=== PATIENT | female | born 2000 | race Two or more races ===

== ENCOUNTER 2023-07-15 20:04 | Inpatient (IN) | payer SELFPAY ==
[~2023-07-15] VITALS: Ht 165.1 cm; Wt 54.7 kg
[2023-07-15] MEDS: LORazepam 2MG/ML-1ML VIAL IV ONE (20:05)
[2023-07-15] MEDS: ETOMIDATE (2MG/ML) 20ML VIAL IV ONE ×2 (20:43→20:51)
[2023-07-15] MEDS: SUCCINYLCHOLINE CHLORIDE 20 MG/ML 10ML VIAL IV ONE ×2 (20:44→20:52)
[2023-07-15 20:55] VITALS: BP 110/72; PULSE 109; RESP 16; O2SAT 100
[2023-07-15] MEDS ORDERED: MIDAZOLAM DRIP 50 mg/50mL 50 ML IV SCH (21:00)
[2023-07-15] MEDS: MIDAZOLAM DRIP 50 mg/50mL 50 ML IV ONE (21:24)
[2023-07-15] MEDS: ROCURONIUM 10MG/ML 10ML VIAL IV ONE (21:24)
[2023-07-15] MEDS: MIDAZOLAM DRIP 50 mg/50mL 50 ML IV SCH (21:30)
[2023-07-15] MEDS ORDERED: ONDANSETRON HCL 4 MG/2 ML VIAL IV PRN (21:45)
[2023-07-15] MEDS ORDERED: MORPHINE SULFATE INJ 2 MG/ml SYRG IV PRN (21:45)
[2023-07-15] MEDS ORDERED: NITROGLYCERIN 0.4 MG SL TAB SL PRN (21:45)
[2023-07-15] MEDS ORDERED: ACETAMINOPHEN 325 MG TAB PO PRN (21:45)
[2023-07-15 21:52] LABS: Urine Bacteria FEW /hpf (None Seen); Urine Blood 2+ /uL (Negative); Urine Clarity Clear (Clear); Urine Color Light-Yellow (Yellow); Urine Protein, UAD Negative (Negative); Urine Urobilinogen Normal (Negative); Urine WBC 1 /hpf (0 - 5); Urine pH 5.5 (5.0-9.0)
[2023-07-15 21:58] LABS: Amphetamine Screen, Urine Neg (NEGATIVE); Barbiturate Scree,Urine Neg (NEGATIVE); Benzodiazephine Screen, Urine Pos (NEGATIVE); Cannabinoid Screen, Urine Neg (NEGATIVE); Cocaine Screen, Urine Neg (NEGATIVE); Opiate Scree,Urine Neg (NEGATIVE); Phencyclidine Screen, Urine Neg (NEGATIVE)
[2023-07-15 22:11] LABS: Basophils # (auto) 0.1 10 ^3/uL (0-0.2); Basophils % (auto) 0.7 % (0.0-2.0); Eosinophils # (auto) 0.2 10 ^3/uL (0-0.8); Eosinophils % (auto) 1.4 % (0.0-7.0); Hemoglobin 13.3 g/dL (12.2-16.2); Lymphocytes # (auto) 8.4 10 ^3/uL (0.4-5.4); Lymphocytes % (auto) 50.6 % (10.0-50.0); Mean Corpuscular Hemoglobin 27.4 pg (28.0-32.0); Mean Corpuscular Hgb Conc. 32.5 g/dL (32.0-36.0); Mean Corpuscular Volume 84.3 fL (80.0-100.0); Monocytes # (auto) 1.4 10 ^3/uL (0-1.3); Monocytes % (auto) 8.7 % (0.0-12.0); Neutrophils # (auto) 6.4 10 ^3/uL (1.6-8.6); Neutrophils % (auto) 38.6 % (37.0-80.0); Nucleated Red Blood Cells % 0.2 %; Red Blood Cells 4.87 10^6/uL (4.0-5.20); Red Cell Distribution Width 13.8 % (11.8-14.3); White Blood Cell 16.5 10^3/uL (4.4-10.8)
[2023-07-15 22:12] LABS: Base Excess -2.6 mmol/L (-2.0-2.0)
[2023-07-15] MEDS: levETIRAcetam 1000 mg/100ml 100 ML IV ONE (22:13)
[2023-07-15] MEDS: PROPOFOL 100 ML IV SCH (22:15)
[2023-07-15 22:29] LABS: Alanine Aminotransferase 18 U/L (7-40); Albumin 4.5 g/dL (3.2-4.8); Alkaline Phosphatase 96 U/L (46-116); Anion Gap 7 (5-15); Aspartate Aminotransferase 33 U/L (13-40); BUN/Creatinine Ratio 11.7 (10.0-20.0); Bilirubin, Total 0.5 mg/dL (0.2-1.0); Blood Urea Nitrogen 9 mg/dL (9-23); Calcium 9.4 mg/dL (8.5-10.1); Carbon Dioxide 26 mmol/L (20-30); Chloride 108 mmol/L (98-107); Glucose 127 mg/dL (74-106); Potassium 3.2 mmol/L (3.5-5.1); Sodium 141 mmol/L (136-145); Total Protein 7.5 g/dL (5.7-8.2)
[2023-07-15] MEDS: fentaNYL Drip 2500mCg/250mlNS 250 ML IV ONE (23:42)
[2023-07-16] VITALS (99 sets, daily range): BP systolic 79–122; BP diastolic 46–89; PULSE 52–101; RESP 13–34; TEMP 96.6–100.2; O2SAT 98–100
[2023-07-16] MEDS: KETAMINE 50mg/ML 10ml Vial 10 ML ONE (00:02)
[2023-07-16] MEDS: SODIUM CHLORIDE 0.9% 1,000 ML IV ONE (00:16)
[2023-07-16] MEDS: ONDANSETRON HCL 4 MG/2 ML VIAL IV ONE (00:16)
[2023-07-16] MEDS: KETAMINE 50mg/ML 10ml Vial (500mg/10ml) IM ONE (00:16)
[2023-07-16] MEDS: PROPOFOL 100 ML IV ONE (00:17)
[2023-07-16] MEDS: SODIUM CHLORIDE 0.9% 1,000 ML IV SCH (01:33)
[2023-07-16] MEDS: PHENYLEPHRINE IV 250 ML IV SCH (02:43)
[2023-07-16] MEDS: fentaNYL Drip 2500mCg/250mlNS 250 ML IV SCH (02:45)
[2023-07-16 04:05] LABS: Basophils # (auto) 0.1 10 ^3/uL (0-0.2); Basophils % (auto) 0.5 % (0.0-2.0); Eosinophils # (auto) 0.1 10 ^3/uL (0-0.8); Eosinophils % (auto) 0.5 % (0.0-7.0); Hematocrit 34.7 % (36.0-46.0); Hemoglobin 11.5 g/dL (12.2-16.2); Lymphocytes # (auto) 2.9 10 ^3/uL (0.4-5.4); Lymphocytes % (auto) 18.8 % (10.0-50.0); Mean Corpuscular Hemoglobin 27.5 pg (28.0-32.0); Mean Corpuscular Volume 83.3 fL (80.0-100.0); Monocytes # (auto) 1.1 10 ^3/uL (0-1.3); Monocytes % (auto) 7.3 % (0.0-12.0); Neutrophils # (auto) 11.2 10 ^3/uL (1.6-8.6); Neutrophils % (auto) 72.9 % (37.0-80.0); Red Blood Cells 4.16 10^6/uL (4.0-5.20); Red Cell Distribution Width 14.1 % (11.8-14.3); White Blood Cell 15.4 10^3/uL (4.4-10.8)
[2023-07-16 04:24] LABS: Alanine Aminotransferase 15 U/L (7-40); Albumin 3.7 g/dL (3.2-4.8); Alkaline Phosphatase 79 U/L (46-116); Anion Gap 8 (5-15); Aspartate Aminotransferase 29 U/L (13-40); BUN/Creatinine Ratio 11.1 (10.0-20.0); Bilirubin, Total 0.2 mg/dL (0.2-1.0); Blood Urea Nitrogen 8 mg/dL (9-23); Calcium 8.3 mg/dL (8.7-10.4); Carbon Dioxide 22 mmol/L (20-30); Chloride 113 mmol/L (98-107); Glucose 98 mg/dL (74-106); Potassium 4.1 mmol/L (3.5-5.1); Sodium 143 mmol/L (136-145); Total Protein 6.4 g/dL (5.7-8.2)
[2023-07-16] MEDS: CEFEPIME 1GM/ 50ML 50 ML IV ONE (08:45)
[2023-07-16] MEDS ORDERED: VANCOMYCIN PER PHARMACY 0 MG IV SCH ×2 (08:45→16:45)
[2023-07-16] MEDS ORDERED: VANCOMYCIN 1GM/200ML 200 ML IV ONE (09:30)
[2023-07-16 10:14] LABS: INR 1.06 (0.9-1.15); Partial Thromboplastin Time 25.8 SEC (24.5-34.5); Prothrombin Time 11.2 sec (9.3-11.8)
[2023-07-16] MEDS: levETIRAcetam 1000 mg/100ml 100 ML IV SCH (10:17)
[2023-07-16] MEDS: NOREPINEPHRINE 8 MG/250ML KIT 250 ML IV SCH (10:18)
[2023-07-16 10:19] LABS: Erythrocyte Sedimentation Rate 10 mm/hr (0-20)
[2023-07-16] MEDS: PANTOPRAZOLE 40 MG/10 ML VIAL INJ IV SCH (10:21)
[2023-07-16] MEDS: ENOXAPARIN SOD 40 MG/0.4 ML SYRINGE SC SCH (10:22)
[2023-07-16 10:25] LABS: Base Excess -4.5 mmol/L (-2.0-2.0)
[2023-07-16 10:28] LABS: CRP High Sensitivity 0.19 mg/dL (<1.0)
[2023-07-16 10:29] LABS: Phosphorus 4.1 mg/dL (2.4-5.1)
[2023-07-16] MEDS: VANCOMYCIN 1GM/200ML 200 ML IV SCH (10:38)
[2023-07-16] MEDS: CEFEPIME 1GM/ 50ML 50 ML IV SCH (14:40)
[2023-07-16] MEDS: MIDAZOLAM DRIP 50 mg/50mL 50 ML IV SCH (17:00)
[2023-07-16] MEDS: DexAMETHasone INJECTION 10 MG in D5W 5% 50 ML IV ONE (20:00)
[2023-07-16] MEDS: Jevity 1.2 Cal/Fiber 1 Liter GT SCH (20:44)
[2023-07-16] MEDS: VANCOMYCIN 1,500 MG in D5W 5% 250 ML IV SCH (20:44)
[2023-07-16] MEDS: levETIRAcetam 500 mg/100ml 100 ML IV SCH (21:46)
[2023-07-16] MEDS: LORazepam 2MG/ML-1ML VIAL IV ONE (22:00)
[2023-07-16] MEDS ORDERED: LORazepam 2MG/ML-1ML VIAL IV PRN (22:00)
[2023-07-16] MEDS: CEFEPIME 2GM/50ML NS 50 ML IV SCH (22:28)
[2023-07-17] VITALS (106 sets, daily range): BP systolic 81–118; BP diastolic 45–85; PULSE 43–104; RESP 13–29; TEMP 96.3–101.1; O2SAT 91–100
[2023-07-17] MEDS: DexAMETHasone INJECTION 10 MG in D5W 5% 50 ML IV SCH
[2023-07-17 04:11] LABS: Nucleated Red Blood Cells % 0.1 %
[2023-07-17 04:12] LABS: Basophils # (auto) 0 10 ^3/uL (0-0.2); Basophils % (auto) 0.3 % (0.0-2.0); Eosinophils # (auto) 0.2 10 ^3/uL (0-0.8); Eosinophils % (auto) 1.5 % (0.0-7.0); Hemoglobin 11.5 g/dL (12.2-16.2); Lymphocytes # (auto) 3.2 10 ^3/uL (0.4-5.4); Lymphocytes % (auto) 23.3 % (10.0-50.0); Mean Corpuscular Hemoglobin 27.2 pg (28.0-32.0); Mean Corpuscular Hgb Conc. 32.8 g/dL (32.0-36.0); Mean Corpuscular Volume 82.9 fL (80.0-100.0); Monocytes # (auto) 1.1 10 ^3/uL (0-1.3); Monocytes % (auto) 8.2 % (0.0-12.0); Neutrophils # (auto) 9.2 10 ^3/uL (1.6-8.6); Neutrophils % (auto) 66.7 % (37.0-80.0); Red Blood Cells 4.22 10^6/uL (4.0-5.20); Red Cell Distribution Width 14.1 % (11.8-14.3); White Blood Cell 13.7 10^3/uL (4.4-10.8)
[2023-07-17 04:32] LABS: Alanine Aminotransferase 13 U/L (7-40); Albumin 3.5 g/dL (3.2-4.8); Alkaline Phosphatase 75 U/L (46-116); Anion Gap 10 (5-15); Aspartate Aminotransferase 17 U/L (13-40); Calcium 8.7 mg/dL (8.7-10.4); Carbon Dioxide 21 mmol/L (20-30); Chloride 113 mmol/L (98-107); Glucose 137 mg/dL (74-106); Magnesium 1.9 mg/dL (1.6-2.6); Potassium 3.4 mmol/L (3.5-5.1); Sodium 144 mmol/L (136-145)
[2023-07-17 04:33] LABS: Bilirubin, Total 0.3 mg/dL (0.2-1.0); Phosphorus 3.4 mg/dL (2.4-5.1); Total Protein 6.2 g/dL (5.7-8.2)
[2023-07-17 04:37] LABS: BUN/Creatinine Ratio 8.3 (10.0-20.0); Blood Urea Nitrogen < 5 mg/dL (9-23)
[2023-07-17 07:40] LABS: Base Excess -1.8 mmol/L (-2.0-2.0)
[2023-07-17 08:06] LABS: RPR Non Reactive (Non Reactive)
[2023-07-17] MEDS: ACETAMINOPHEN 650 mg PER 20.3 mL UD GT PRN (11:18)
[2023-07-17] MEDS: levETIRAcetam 1000 mg/100ml 100 ML IV ONE (11:18)
[2023-07-17] MEDS: POTASSIUM CHL 20MEQ/100ML 100 ML IV ONE (11:38)
[2023-07-17 12:07] LABS: Anti-Centromere B Antibody <0.2 AI (0.0-0.9); Anti-Jo-1 Antibody <0.2 AI (0.0-0.9); Anti-Nuclear Antibody Direct Negative (Negative); Anti-dsDNA Antibody 1 IU/mL (0-9); Antichromatin Antibody <0.2 AI (0.0-0.9); Antiscleroderma-70 Antibody <0.2 AI (0.0-0.9); RNP Antibody <0.2 AI (0.0-0.9); Sjogren's Anti-SS-A Antibody <0.2 AI (0.0-0.9); Sjogren's Anti-SS-B Antibody <0.2 AI (0.0-0.9); Smith Antibody <0.2 AI (0.0-0.9)
[2023-07-17] MEDS: levETIRAcetam 500 mg/100ml 100 ML IV SCH (16:30)
[2023-07-18] VITALS (106 sets, daily range): BP systolic 86–128; BP diastolic 46–83; PULSE 41–89; RESP 9–24; TEMP 96.2–98.4; O2SAT 77–99
[2023-07-18 04:00] LABS: White Blood Cell 28.8 10^3/uL (4.4-10.8)
[2023-07-18 04:06] LABS: Hematocrit 36.7 % (36.0-46.0); Mean Corpuscular Hemoglobin 27.6 pg (28.0-32.0); Mean Corpuscular Hgb Conc. 32.7 g/dL (32.0-36.0); Mean Corpuscular Volume 84.3 fL (80.0-100.0); Red Blood Cells 4.35 10^6/uL (4.0-5.20); Red Cell Distribution Width 13.9 % (11.8-14.3)
[2023-07-18 04:07] LABS: Basophils % (manual) 0 (0.0-2.0); Blast Cells 0; Eosinophils % (manual) 0 (0-7); Metamyelocytes % 0; Myelocytes % 0; Promyelocytes % 0; Reactive Lymphocytes 0
[2023-07-18 04:14] LABS: Anion Gap 7 (5-15); Carbon Dioxide 23 mmol/L (20-30); Chloride 113 mmol/L (98-107); Sodium 143 mmol/L (136-145)
[2023-07-18 04:15] LABS: Calcium 9.4 mg/dL (8.7-10.4)
[2023-07-18 04:20] LABS: Glucose 156 mg/dL (74-106)
[2023-07-18 04:41] LABS: BUN/Creatinine Ratio 7.1 (10.0-20.0); Blood Urea Nitrogen < 5 mg/dL (9-23)
[2023-07-18 07:34] LABS: Base Excess -0.9 mmol/L (-2.0-2.0)
[2023-07-18 09:57] LABS: Platelet Estimate Adequate
[2023-07-18 09:59] LABS: Band Neutrophils % (manual) 15; Lymphocytes % (manual) 4 (10.0-50.0); Monocytes % (manual) 1 (0-12)
[2023-07-18] MEDS: VANCOMYCIN 1GM/200ML 200 ML IV ONE (10:41)
[2023-07-18 11:03] LABS: Urine Bacteria None Seen /hpf (None Seen)
[2023-07-18 11:33] LABS: Urine Blood Negative /uL (Negative); Urine Clarity Clear (Clear); Urine Color Light-Yellow (Yellow); Urine Mucus FEW (None Seen); Urine Protein, UAD TRACE (Negative); Urine Specific Gravity 1.021 (1.001-1.035); Urine Urobilinogen Normal (Negative); Urine WBC 1 /hpf (0 - 5); Urine pH 5.5 (5.0-9.0)
[2023-07-18] MEDS: DOPamine 1600MCG/ML D5W 250 ML IV ONE (12:42)
[2023-07-18] MEDS: LORazepam 2MG/ML-1ML VIAL ONE (13:02)
[2023-07-18 15:30] LABS: Protein, CSF 34.6 mg/dL (15-45)
[2023-07-18] MEDS: ATROPINE SULFATE 1 MG/1 ML VIAL ONE (16:26)
[2023-07-18] MEDS: DOPamine 1600MCG/ML D5W 250 ML IV SCH ×2 (16:46→20:15)
[2023-07-18 17:11] LABS: CSF White Blood Cells 3 CUMM (0-5); Description,CSF COLORLESS
[2023-07-18] MEDS: LORazepam 2MG/ML-1ML VIAL IV ONE (17:33)
[2023-07-18] MEDS: VANCOMYCIN 1GM/200ML 200 ML IV SCH (17:57)
[2023-07-18 19:06] LABS: Antimyeloperoxidase (MPO) Ab <0.2 units (0.0-0.9); Antiproteinase 3 (PR-3) Ab <0.2 units (0.0-0.9)
[2023-07-19] VITALS (94 sets, daily range): BP systolic 94–142; BP diastolic 17–86; PULSE 37–74; RESP 15–24; TEMP 97.5–99.1; O2SAT 92–99
[2023-07-19 05:11] LABS: Basophils # (auto) 0 10 ^3/uL (0-0.2); Eosinophils # (auto) 0 10 ^3/uL (0-0.8); Hematocrit 35.5 % (36.0-46.0); Hemoglobin 11.5 g/dL (12.2-16.2); Lymphocytes # (auto) 1.1 10 ^3/uL (0.4-5.4); Mean Corpuscular Hemoglobin 27.1 pg (28.0-32.0); Mean Corpuscular Hgb Conc. 32.5 g/dL (32.0-36.0); Mean Corpuscular Volume 83.5 fL (80.0-100.0); Monocytes # (auto) 1.2 10 ^3/uL (0-1.3); Monocytes % (auto) 4.3 % (0.0-12.0); Neutrophils # (auto) 25.2 10 ^3/uL (1.6-8.6); Neutrophils % (auto) 91.7 % (37.0-80.0); Red Blood Cells 4.25 10^6/uL (4.0-5.20); White Blood Cell 27.4 10^3/uL (4.4-10.8)
[2023-07-19 06:50] LABS: BUN/Creatinine Ratio 11.9 (10.0-20.0); Blood Urea Nitrogen 8 mg/dL (9-23); Chloride 113 mmol/L (98-107); Glucose 132 mg/dL (74-106)
[2023-07-19 06:53] LABS: Anion Gap 13 (5-15); Calcium 9.2 mg/dL (8.7-10.4); Carbon Dioxide 25 mmol/L (20-30)
[2023-07-19 06:55] LABS: Sodium 151 mmol/L (136-145)
[2023-07-19 07:16] LABS: Base Excess 0.7 mmol/L (-2.0-2.0)
[2023-07-19 07:36] LABS: Rapid Influenza A Negative (Negative)
[2023-07-19 07:38] LABS: Rapid Influenza B Positive (Negative)
[2023-07-19 07:39] LABS: COVID19 ANTIGEN SOFIA FIA NEGATIVE (NEGATIVE)
[2023-07-19] MEDS: OSELTAMIVIR 75MG/5ML ORAL SUSP GT SCH (11:26)
[2023-07-19] MEDS: FREE WATER GT SCH (11:29)
[2023-07-19 13:17] LABS: INR 1.18 (0.9-1.15); Partial Thromboplastin Time 27.5 SEC (24.5-34.5); Prothrombin Time 12.4 sec (9.3-11.8)
[2023-07-19] MEDS: LIDOCAINE 1% (LOCAL ANESTH.) PF 5ml SDV ID ONE (14:00)
[2023-07-19 14:06] LABS: Cytoplasmic (C-ANCA) <1:20 titer (Neg:<1:20); Perinuclear (P-ANCA) <1:20 titer (Neg:<1:20)
[2023-07-19] MEDS ORDERED: ATROPINE SULF 1 MG/10ml SYR IV PRN (15:15)
[2023-07-19] MEDS: VANCOMYCIN 1GM/200ML 200 ML IV SCH (17:41)
[2023-07-19] MEDS: cefTRIAXone 2GM/50ML D5W 50 ML IV SCH (21:25)
[2023-07-19] MEDS: SODIUM CHLOR 0.9% PF (SALINE LOCK) 10ML VIAL/SYR IV SCH (21:30)
[2023-07-19] MEDS: LORazepam 2MG/ML-1ML VIAL IV PRN (22:14)
[2023-07-19] MEDS: LORazepam 2MG/ML-1ML VIAL IV ONE (22:17)
[2023-07-19] MEDS ORDERED: levETIRAcetam 500 mg/100ml 100 ML IV SCH (23:00)
[2023-07-19 23:06] LABS: Chlamydia Trachomatis, NAA Positive (Negative); Neisseria gonorrhoeae, NAA Negative (Negative)
[2023-07-20] VITALS (91 sets, daily range): BP systolic 88–137; BP diastolic 41–86; PULSE 47–104; RESP 15–29; TEMP 96.4–100; O2SAT 92–100
[2023-07-20 04:17] LABS: Basophils # (auto) 0.1 10 ^3/uL (0-0.2); Basophils % (auto) 0.4 % (0.0-2.0); Eosinophils # (auto) 0 10 ^3/uL (0-0.8); Eosinophils % (auto) 0.1 % (0.0-7.0); Hematocrit 33.5 % (36.0-46.0); Hemoglobin 11.2 g/dL (12.2-16.2); Lymphocytes # (auto) 1.8 10 ^3/uL (0.4-5.4); Lymphocytes % (auto) 9.8 % (10.0-50.0); Mean Corpuscular Hemoglobin 27.8 pg (28.0-32.0); Mean Corpuscular Hgb Conc. 33.5 g/dL (32.0-36.0); Mean Corpuscular Volume 83.1 fL (80.0-100.0); Monocytes % (auto) 5.5 % (0.0-12.0); Neutrophils # (auto) 15.7 10 ^3/uL (1.6-8.6); Neutrophils % (auto) 84.2 % (37.0-80.0); Nucleated Red Blood Cells % 0.1 %; Red Blood Cells 4.02 10^6/uL (4.0-5.20); Red Cell Distribution Width 13.9 % (11.8-14.3); White Blood Cell 18.6 10^3/uL (4.4-10.8)
[2023-07-20 04:40] LABS: Alanine Aminotransferase 10 U/L (7-40); Albumin 3.6 g/dL (3.2-4.8); Alkaline Phosphatase 71 U/L (46-116); Anion Gap 11 (5-15); Aspartate Aminotransferase 14 U/L (13-40); Bilirubin, Total 0.2 mg/dL (0.2-1.0); Blood Urea Nitrogen 8 mg/dL (9-23); Calcium 8.4 mg/dL (8.7-10.4); Carbon Dioxide 24 mmol/L (20-30); Chloride 108 mmol/L (98-107); Glucose 184 mg/dL (74-106); Magnesium 1.8 mg/dL (1.6-2.6); Potassium 3.5 mmol/L (3.5-5.1); Sodium 143 mmol/L (136-145); Total Protein 6.3 g/dL (5.7-8.2)
[2023-07-20] MEDS: LORazepam 2MG/ML-1ML VIAL IV PRN (05:25)
[2023-07-20] MEDS: DOPamine 1600MCG/ML D5W 250 ML IV SCH (08:45)
[2023-07-20 08:57] LABS: Base Excess -0.2 mmol/L (-2.0-2.0)
[2023-07-20] MEDS: levETIRAcetam 1500 mg/100ml 100 ML IV SCH (09:01)
[2023-07-20] MEDS: PHENYTOIN IV DILANTIN 1,000 MG in SODIUM CHL 0.9% 250 ML IV ONE (19:26)
[2023-07-21] VITALS (105 sets, daily range): BP systolic 87–121; BP diastolic 42–77; PULSE 55–142; RESP 12–33; TEMP 97.2–103.6; O2SAT 93–100
[2023-07-21 03:45] LABS: Basophils # (auto) 0 10 ^3/uL (0-0.2); Basophils % (auto) 0.3 % (0.0-2.0); Eosinophils # (auto) 0.2 10 ^3/uL (0-0.8); Eosinophils % (auto) 1.4 % (0.0-7.0); Hematocrit 30.9 % (36.0-46.0); Hemoglobin 10.4 g/dL (12.2-16.2); Lymphocytes # (auto) 2.1 10 ^3/uL (0.4-5.4); Mean Corpuscular Hemoglobin 28.1 pg (28.0-32.0); Mean Corpuscular Hgb Conc. 33.7 g/dL (32.0-36.0); Mean Corpuscular Volume 83.6 fL (80.0-100.0); Monocytes # (auto) 0.5 10 ^3/uL (0-1.3); Monocytes % (auto) 4.2 % (0.0-12.0); Neutrophils # (auto) 9.5 10 ^3/uL (1.6-8.6); Neutrophils % (auto) 77.1 % (37.0-80.0); Red Cell Distribution Width 13.8 % (11.8-14.3); White Blood Cell 12.4 10^3/uL (4.4-10.8)
[2023-07-21 03:55] LABS: Potassium 3.3 mmol/L (3.5-5.1)
[2023-07-21 04:01] LABS: Albumin 3.3 g/dL (3.2-4.8)
[2023-07-21 04:02] LABS: BUN/Creatinine Ratio 9.4 (10.0-20.0)
[2023-07-21] MEDS: PHENYTOIN SODIUM 50 MG/ML 2ML VIAL IV SCH (05:58)
[2023-07-21] MEDS: VANCOMYCIN 1GM/200ML 200 ML IV SCH (17:52)
[2023-07-21] MEDS ORDERED: DOBUTamine 1000MCG/ML 250 ML IV SCH (23:15)
[2023-07-21] MEDS ORDERED: EPINEPHrine HCL 250 ML IV SCH (23:15)
[2023-07-22] VITALS (106 sets, daily range): BP systolic 92–128; BP diastolic 50–93; PULSE 54–111; RESP 15–28; TEMP 98–99.7; O2SAT 95–100
[2023-07-22 04:15] LABS: Basophils # (auto) 0.1 10 ^3/uL (0-0.2); Basophils % (auto) 0.4 % (0.0-2.0); Eosinophils # (auto) 0.4 10 ^3/uL (0-0.8); Eosinophils % (auto) 2.6 % (0.0-7.0); Hematocrit 30.8 % (36.0-46.0); Hemoglobin 10.2 g/dL (12.2-16.2); Lymphocytes # (auto) 2.6 10 ^3/uL (0.4-5.4); Lymphocytes % (auto) 16.3 % (10.0-50.0); Mean Corpuscular Hemoglobin 27.5 pg (28.0-32.0); Mean Corpuscular Hgb Conc. 32.9 g/dL (32.0-36.0); Mean Corpuscular Volume 83.5 fL (80.0-100.0); Monocytes # (auto) 0.9 10 ^3/uL (0-1.3); Monocytes % (auto) 5.8 % (0.0-12.0); Neutrophils # (auto) 12.1 10 ^3/uL (1.6-8.6); Neutrophils % (auto) 74.9 % (37.0-80.0); Red Blood Cells 3.69 10^6/uL (4.0-5.20); Red Cell Distribution Width 14.1 % (11.8-14.3); White Blood Cell 16.1 10^3/uL (4.4-10.8)
[2023-07-22 04:51] LABS: Alanine Aminotransferase 23 U/L (7-40); Albumin 3.2 g/dL (3.2-4.8); Alkaline Phosphatase 85 U/L (46-116); Anion Gap 10 (5-15); Calcium 8.5 mg/dL (8.5-10.1); Carbon Dioxide 22 mmol/L (20-30); Chloride 112 mmol/L (98-107); Glucose 81 mg/dL (74-106); Potassium 2.9 mmol/L (3.5-5.1); Sodium 144 mmol/L (136-145)
[2023-07-22 04:52] LABS: BUN/Creatinine Ratio 12.8 (10.0-20.0); Bilirubin, Total < 0.2 mg/dL (0.2-1.0); Blood Urea Nitrogen < 5 mg/dL (9-23); Total Protein 5.7 g/dL (5.7-8.2)
[2023-07-22 04:55] LABS: Aspartate Aminotransferase 78 U/L (13-40)
[2023-07-22] MEDS: POTASSIUM CHL 20MEQ/100ML 100 ML IV ONE (05:57)
[2023-07-22 07:49] LABS: Base Excess -3.7 mmol/L (-2.0-2.0)
[2023-07-22] MEDS ORDERED: DOXYCYCLINE 100MG/250ML 250 ML IV SCH (08:30)
[2023-07-22] MEDS: POTASSIUM CHL 20MEQ/100ML 100 ML IV SCH (08:49)
[2023-07-22] MEDS: DOXYCYCLINE 100MG/250ML 250 ML IV ONE (10:12)
[2023-07-22] MEDS ORDERED: VANCOMYCIN 1GM/200ML 200 ML IV SCH (14:00)
[2023-07-22] MEDS: DOXYCYCLINE 100MG/250ML 250 ML IV SCH (21:57)
[2023-07-23] VITALS (102 sets, daily range): BP systolic 96–142; BP diastolic 53–95; PULSE 61–139; RESP 10–48; TEMP 98.2–102.2; O2SAT 66–100
[2023-07-23 04:22] LABS: Basophils # (auto) 0 10 ^3/uL (0-0.2); Basophils % (auto) 0.4 % (0.0-2.0); Eosinophils # (auto) 0.5 10 ^3/uL (0-0.8); Eosinophils % (auto) 4.9 % (0.0-7.0); Hematocrit 34.7 % (36.0-46.0); Hemoglobin 11.4 g/dL (12.2-16.2); Lymphocytes # (auto) 2.8 10 ^3/uL (0.4-5.4); Lymphocytes % (auto) 25.3 % (10.0-50.0); Mean Corpuscular Hemoglobin 27.2 pg (28.0-32.0); Mean Corpuscular Hgb Conc. 32.8 g/dL (32.0-36.0); Monocytes # (auto) 1.5 10 ^3/uL (0-1.3); Monocytes % (auto) 14.1 % (0.0-12.0); Neutrophils % (auto) 55.3 % (37.0-80.0); Nucleated Red Blood Cells % 0.1 %; Red Blood Cells 4.18 10^6/uL (4.0-5.20); Red Cell Distribution Width 14.2 % (11.8-14.3); White Blood Cell 10.9 10^3/uL (4.4-10.8)
[2023-07-23 04:38] LABS: Alkaline Phosphatase 106 U/L (46-116)
[2023-07-23 04:39] LABS: Alanine Aminotransferase 28 U/L (7-40); Albumin 3.5 g/dL (3.2-4.8); Anion Gap 11 (5-15); Aspartate Aminotransferase 64 U/L (13-40); Bilirubin, Total < 0.2 mg/dL (0.2-1.0); Carbon Dioxide 26 mmol/L (20-30); Chloride 108 mmol/L (98-107); Glucose 104 mg/dL (74-106); Magnesium 1.7 mg/dL (1.6-2.6); Potassium 3.2 mmol/L (3.5-5.1); Sodium 145 mmol/L (136-145); Total Protein 6.4 g/dL (5.7-8.2)
[2023-07-23 04:49] LABS: BUN/Creatinine Ratio 11.1 (10.0-20.0); Blood Urea Nitrogen < 5 mg/dL (9-23)
[2023-07-23] MEDS: PROPOFOL 100 ML IV SCH (06:34)
[2023-07-23 07:53] LABS: Base Excess -0.5 mmol/L (-2.0-2.0)
[2023-07-23] MEDS: POTASSIUM CHL 20MEQ/100ML 100 ML IV ONE (09:46)
[2023-07-23 13:53] LABS: Base Excess -0.1 mmol/L (-2.0-2.0)
[2023-07-23] MEDS: POTASSIUM CHL 20MEQ/100ML 100 ML IV SCH (19:29)
[2023-07-23] MEDS ORDERED: ONDANSETRON HCL 4 MG/2 ML VIAL IV PRN (20:45)
[2023-07-23] MEDS: ACETAMINOPHEN 650 MG RECT SUPP PR PRN (22:16)
[2023-07-23] MEDS ORDERED: LORazepam 2MG/ML-1ML VIAL IV PRN (23:15)
[2023-07-24] VITALS (47 sets, daily range): BP systolic 78–116; BP diastolic 54–86; PULSE 94–130; RESP 12–45; TEMP 98.5–101.7; O2SAT 89–100
[2023-07-24 04:46] LABS: Basophils # (auto) 0 10 ^3/uL (0-0.2); Basophils % (auto) 0.3 % (0.0-2.0); Eosinophils # (auto) 0 10 ^3/uL (0-0.8); Eosinophils % (auto) 0.2 % (0.0-7.0); Hematocrit 33.4 % (36.0-46.0); Hemoglobin 11.6 g/dL (12.2-16.2); Lymphocytes # (auto) 1.2 10 ^3/uL (0.4-5.4); Lymphocytes % (auto) 9.8 % (10.0-50.0); Mean Corpuscular Hemoglobin 28.1 pg (28.0-32.0); Mean Corpuscular Hgb Conc. 34.7 g/dL (32.0-36.0); Mean Corpuscular Volume 80.9 fL (80.0-100.0); Monocytes # (auto) 0.6 10 ^3/uL (0-1.3); Monocytes % (auto) 4.7 % (0.0-12.0); Neutrophils # (auto) 10.2 10 ^3/uL (1.6-8.6); Red Blood Cells 4.13 10^6/uL (4.0-5.20); Red Cell Distribution Width 13.9 % (11.8-14.3)
[2023-07-24 05:02] LABS: Alanine Aminotransferase 38 U/L (7-40); Albumin 4.2 g/dL (3.2-4.8); Alkaline Phosphatase 132 U/L (46-116); Anion Gap 14 (5-15); Aspartate Aminotransferase 72 U/L (13-40); Bilirubin, Total 0.2 mg/dL (0.2-1.0); Calcium 9.7 mg/dL (8.7-10.4); Carbon Dioxide 23 mmol/L (20-30); Chloride 104 mmol/L (98-107); Glucose 100 mg/dL (74-106); Magnesium 1.9 mg/dL (1.6-2.6); Potassium 3.8 mmol/L (3.5-5.1); Sodium 141 mmol/L (136-145); Total Protein 7.5 g/dL (5.7-8.2)
[2023-07-24 05:12] LABS: BUN/Creatinine Ratio 11.1 (10.0-20.0); Blood Urea Nitrogen < 5 mg/dL (9-23)
[2023-07-24] MEDS: AMPICILLIN & SULBACTAM SODIUM 3 GM in SODIUM CHL 0.9% 100 ML IV SCH (12:15)
[2023-07-24] MEDS: levETIRAcetam 500 MG TAB PO SCH (21:31)
[2023-07-24] MEDS: PHENYTOIN SODIUM 100 MG CAP PO SCH (22:19)
[2023-07-25] VITALS (12 sets, daily range): BP systolic 99–106; BP diastolic 65–75; PULSE 71–116; RESP 15–21; TEMP 97.9–99.2; O2SAT 96–98
[2023-07-25 06:05] LABS: Basophils # (auto) 0 10 ^3/uL (0-0.2); Basophils % (auto) 0.5 % (0.0-2.0); Eosinophils # (auto) 0.1 10 ^3/uL (0-0.8); Eosinophils % (auto) 0.6 % (0.0-7.0); Hematocrit 35.5 % (36.0-46.0); Lymphocytes # (auto) 2.1 10 ^3/uL (0.4-5.4); Lymphocytes % (auto) 21.9 % (10.0-50.0); Mean Corpuscular Hemoglobin 27.4 pg (28.0-32.0); Mean Corpuscular Hgb Conc. 33.8 g/dL (32.0-36.0); Mean Corpuscular Volume 81.1 fL (80.0-100.0); Monocytes # (auto) 0.8 10 ^3/uL (0-1.3); Monocytes % (auto) 8.7 % (0.0-12.0); Neutrophils # (auto) 6.6 10 ^3/uL (1.6-8.6); Neutrophils % (auto) 68.3 % (37.0-80.0); Red Blood Cells 4.38 10^6/uL (4.0-5.20); Red Cell Distribution Width 14.2 % (11.8-14.3); White Blood Cell 9.7 10^3/uL (4.4-10.8)
[2023-07-25 06:24] LABS: Alanine Aminotransferase 34 U/L (7-40); Albumin 4.2 g/dL (3.2-4.8); Alkaline Phosphatase 111 U/L (46-116); Anion Gap 15 (5-15); Aspartate Aminotransferase 43 U/L (13-40); Bilirubin, Total 0.3 mg/dL (0.2-1.0); Blood Urea Nitrogen 9 mg/dL (9-23); Calcium 9.7 mg/dL (8.7-10.4); Carbon Dioxide 21 mmol/L (20-30); Chloride 107 mmol/L (98-107); Glucose 93 mg/dL (74-106); Magnesium 2.2 mg/dL (1.6-2.6); Potassium 3.7 mmol/L (3.5-5.1); Sodium 143 mmol/L (136-145)
[2023-07-25 06:25] LABS: Total Protein 7.5 g/dL (5.7-8.2)
[2023-07-25] MEDS ORDERED: PANTOPRAZOLE 40 MG TAB PO ONE (12:45)
[2023-07-26] VITALS (8 sets, daily range): BP systolic 102–106; BP diastolic 65–74; PULSE 63–77; RESP 15–17; TEMP 97.5–99.2; O2SAT 93–98
[2023-07-26] MEDS: PANTOPRAZOLE 40 MG TAB PO SCH (05:40)
[2023-07-26 06:30] LABS: Basophils # (auto) 0.1 10 ^3/uL (0-0.2); Basophils % (auto) 0.9 % (0.0-2.0); Eosinophils # (auto) 0.1 10 ^3/uL (0-0.8); Eosinophils % (auto) 0.7 % (0.0-7.0); Hematocrit 34.3 % (36.0-46.0); Hemoglobin 11.4 g/dL (12.2-16.2); Lymphocytes # (auto) 2.4 10 ^3/uL (0.4-5.4); Lymphocytes % (auto) 26.1 % (10.0-50.0); Mean Corpuscular Hemoglobin 27.4 pg (28.0-32.0); Mean Corpuscular Hgb Conc. 33.3 g/dL (32.0-36.0); Mean Corpuscular Volume 82.3 fL (80.0-100.0); Monocytes % (auto) 10.5 % (0.0-12.0); Neutrophils # (auto) 5.8 10 ^3/uL (1.6-8.6); Neutrophils % (auto) 61.8 % (37.0-80.0); Nucleated Red Blood Cells % 0.1 %; Red Blood Cells 4.17 10^6/uL (4.0-5.20); Red Cell Distribution Width 13.9 % (11.8-14.3); White Blood Cell 9.4 10^3/uL (4.4-10.8)
[2023-07-26 06:49] LABS: Alanine Aminotransferase 33 U/L (7-40); Albumin 4.2 g/dL (3.2-4.8); Alkaline Phosphatase 100 U/L (46-116); Anion Gap 10 (5-15); Aspartate Aminotransferase 27 U/L (13-40); BUN/Creatinine Ratio 16.7 (10.0-20.0); Bilirubin, Total 0.3 mg/dL (0.2-1.0); Blood Urea Nitrogen 9 mg/dL (9-23); Calcium 9.5 mg/dL (8.5-10.1); Carbon Dioxide 21 mmol/L (20-30); Chloride 109 mmol/L (98-107); Glucose 87 mg/dL (74-106); Magnesium 2.2 mg/dL (1.6-2.6); Potassium 3.4 mmol/L (3.5-5.1); Sodium 140 mmol/L (136-145); Total Protein 7.4 g/dL (5.7-8.2)
[2023-07-26] MEDS: AMOXICILLIN/CLAVUL 875 MG TAB PO SCH (11:26)
[2023-07-26] MEDS ORDERED: AUG875T PO (13:54)
[2023-07-26] MEDS ORDERED: PHEN1CAP60 PO (13:54)
[2023-07-26] MEDS ORDERED: KEP500T PO (13:54)
[2023-07-27] VITALS (8 sets, daily range): BP systolic 91–106; BP diastolic 57–72; PULSE 66–77; RESP 17–18; TEMP 97.7–98.9; O2SAT 94–98
[2023-07-27 06:56] LABS: Basophils # (auto) 0.1 10 ^3/uL (0-0.2); Basophils % (auto) 1.1 % (0.0-2.0); Eosinophils # (auto) 0.1 10 ^3/uL (0-0.8); Eosinophils % (auto) 1.4 % (0.0-7.0); Hematocrit 39.7 % (36.0-46.0); Hemoglobin 12.9 g/dL (12.2-16.2); Lymphocytes # (auto) 3.2 10 ^3/uL (0.4-5.4); Lymphocytes % (auto) 31.2 % (10.0-50.0); Mean Corpuscular Hemoglobin 27.3 pg (28.0-32.0); Mean Corpuscular Hgb Conc. 32.5 g/dL (32.0-36.0); Mean Corpuscular Volume 83.9 fL (80.0-100.0); Monocytes # (auto) 0.8 10 ^3/uL (0-1.3); Monocytes % (auto) 7.9 % (0.0-12.0); Neutrophils % (auto) 58.4 % (37.0-80.0); Nucleated Red Blood Cells % 0.2 %; Red Blood Cells 4.73 10^6/uL (4.0-5.20); White Blood Cell 10.3 10^3/uL (4.4-10.8)
[2023-07-27 07:25] LABS: Chloride 108 mmol/L (98-107); Potassium 3.7 mmol/L (3.5-5.1); Sodium 138 mmol/L (136-145)
[2023-07-27 07:26] LABS: Anion Gap 9 (5-15); Carbon Dioxide 21 mmol/L (20-30)
[2023-07-27 07:31] LABS: Glucose 74 mg/dL (74-106)
[2023-07-27 07:32] LABS: BUN/Creatinine Ratio 14.5 (10.0-20.0); Blood Urea Nitrogen 9 mg/dL (9-23); Magnesium 2.4 mg/dL (1.6-2.6)
[2023-07-28 01:00] VITALS: BP 95/65; PULSE 70; TEMP 98.3; O2SAT 95
[2023-07-28 05:00] VITALS: BP_SYST 103; BP_SYST 88; BP_DIAS 51; BP_DIAS 55; PULSE 62; PULSE 77; RESP 18; TEMP 98.8; O2SAT 97
[2023-07-28 08:00] VITALS: PULSE 61
[2023-07-28 08:16] VITALS: PULSE 67; RESP 16; O2SAT 96
[2023-07-28 20:00] VITALS: PULSE 82
[2023-07-28 21:00] VITALS: BP 92/64; PULSE 78; RESP 16; TEMP 98.7; O2SAT 98
[2023-07-29 01:00] VITALS: BP 94/61; PULSE 78; RESP 16; TEMP 98.6; O2SAT 95
[2023-07-29 05:00] VITALS: BP 90/56; PULSE 89; RESP 16; TEMP 98.3; O2SAT 97
[2023-07-29 08:00] VITALS: PULSE 73
[2023-07-29 08:10] VITALS: PULSE 71; RESP 16; O2SAT 98
[2023-07-29 09:00] VITALS: BP 90/62; PULSE 71; RESP 16; TEMP 98.8; O2SAT 98
[2023-07-29 13:00] VITALS: BP 89/61; PULSE 79; RESP 17; TEMP 98.5; O2SAT 95
== END 2023-07-29 17:40 | disposition home or self-care (01) | DRG 870 ==
LOC: ER 20:04 → EDBD 20:04 → TELE 22:00 → ICU WEST 07-16 02:55 → TELE-CENTR 07-24 21:46
PROVIDERS: ADMIT Internal Medicine; ATTEND Anesthesiology
PROC: 5A1955Z Respiratory Ventilation, Greater than 96 Consecutive Hours (ICD-10-PCS; principal; 2023-07-15)
PROC: 0BH17EZ Insertion of Endotracheal Airway into Trachea, Via Natural or Artificial Opening (ICD-10-PCS; 2023-07-15)
PROC: 009U3ZZ Drainage of Spinal Canal, Percutaneous Approach (ICD-10-PCS; 2023-07-18)
DX: A41.9 Sepsis, unspecified organism (principal); J96.00 Acute respiratory failure, unspecified whether with hypoxia or hypercapnia; R65.21 Severe sepsis with septic shock; G92.8 Other toxic encephalopathy; J69.0 Pneumonitis due to inhalation of food and vomit; E87.0 Hyperosmolality and hypernatremia; A87.9 Viral meningitis, unspecified; F29 Unspecified psychosis not due to a substance or known physiological condition; E87.6 Hypokalemia; Z20.822 Contact with and (suspected) exposure to COVID-19; A74.9 Chlamydial infection, unspecified; G40.401 Other generalized epilepsy and epileptic syndromes, not intractable, with status epilepticus; J10.1 Influenza due to other identified influenza virus with other respiratory manifestations; Z87.820 Personal history of traumatic brain injury; Z91.148 Patient's other noncompliance with medication regimen for other reason; Z79.899 Other long term (current) drug therapy; Z82.49 Family history of ischemic heart disease and other diseases of the circulatory system; Z83.3 Family history of diabetes mellitus; Z81.8 Family history of other mental and behavioral disorders; Z56.0 Unemployment, unspecified; Z88.1 Allergy status to other antibiotic agents; Z90.49 Acquired absence of other specified parts of digestive tract
CPT/HCPCS: 31500; 36415; 36569; 36600; 70450; 70551; 71045; 71250; 74176; 80048; 80053; 80069; 80185; 80202; 80307; 81001; 82140; 82550; 82565; 82805; 82945; 83516; 83520; 83605; 83615; 83735; 83880; 84100; 84132; 84146; 84157; 84443; 84484; 84702; 85007; 85025; 85027; 85379; 85610; 85652; 85730; 86038; 86141; 86225; 86235; 86256; 86592; 86703; 87040; 87070; 87077; 87081; 87086; 87186; 87205; 87426; 87804; 89051; 93306; 94002; 94003; 94640; 95819; 99291; A4565; C9113; G0378; J0330; J0461; J0692; J1100; J2704; J3480; J3490; J7060

== ENCOUNTER 2023-11-01 19:49 | Inpatient (IN) | payer MEDICAID ==
[~2023-11-01] VITALS: Ht 160 cm; Wt 62.4 kg
[~2023-11-01 19:49] MED LIST: KEP500T PO; PHEN1CAP38 PO
[2023-11-01] MEDS: LORazepam 2MG/ML-1ML VIAL ONE (19:55)
[2023-11-01] MEDS: LORazepam 2MG/ML-1ML VIAL IM ONE (19:58)
[2023-11-01] MEDS: MIDAZOLAM HCL 5 MG/ML-1ML VIAL ONE (19:59)
[2023-11-01] MEDS: ROCURONIUM 10MG/ML 10ML VIAL IV ONE (19:59)
[2023-11-01 20:30] VITALS: PULSE 102; RESP 17; O2SAT 99
[2023-11-01] MEDS: levETIRAcetam 1000 mg/100ml 100 ML IV ONE (20:57)
[2023-11-01] MEDS: SODIUM CHLORIDE 0.9% 1,000 ML IV ONE ×2 (20:58→23:18)
[2023-11-02 01:43] LABS: Basophils # (auto) 0.1 10 ^3/uL (0-0.2); Eosinophils # (auto) 0.1 10 ^3/uL (0-0.8); Hemoglobin 13.1 g/dL (12.2-16.2); Mean Corpuscular Hemoglobin 26.2 pg (28.0-32.0)
[2023-11-02 01:45] LABS: Eosinophils % (auto) 0.8 % (0.0-7.0); Lymphocytes # (auto) 2.6 10 ^3/uL (0.4-5.4); Mean Corpuscular Hgb Conc. 33.7 g/dL (32.0-36.0); Mean Corpuscular Volume 77.7 fL (80.0-100.0); Monocytes # (auto) 0.7 10 ^3/uL (0-1.3); Monocytes % (auto) 7.4 % (0.0-12.0); Neutrophils # (auto) 6.3 10 ^3/uL (1.6-8.6); Neutrophils % (auto) 63.8 % (37.0-80.0); Nucleated Red Blood Cells % 0.1 %; Platelet Count (auto) 261 10^3/uL (140-450); Red Blood Cells 5.02 10^6/uL (4.0-5.20); Red Cell Distribution Width 15.7 % (11.8-14.3); White Blood Cell 9.8 10^3/uL (4.4-10.8)
[2023-11-02 03:20] LABS: Chloride 107 mmol/L (98-107); Potassium 4.2 mmol/L (3.5-5.1); Sodium 138 mmol/L (136-145)
[2023-11-02 03:21] LABS: Anion Gap 8 (5-15); Calcium 9.8 mg/dL (8.7-10.4); Carbon Dioxide 23 mmol/L (20-30)
[2023-11-02 03:26] LABS: BUN/Creatinine Ratio 10.5 (10.0-20.0); Blood Urea Nitrogen 8 mg/dL (9-23); Glucose 88 mg/dL (74-106)
[2023-11-02] MEDS ORDERED: ONDANSETRON HCL 4 MG/2 ML VIAL IV PRN (04:00)
[2023-11-02] MEDS ORDERED: NITROGLYCERIN 0.4 MG SL TAB SL PRN (04:00)
[2023-11-02] MEDS ORDERED: MORPHINE SULFATE INJ 2 MG/ml SYRG IV PRN (04:00)
[2023-11-02] MEDS ORDERED: HYDROcodone-ACET 5/325MG TAB PO PRN (04:00)
[2023-11-02] MEDS ORDERED: DOCUSATE SOD 100 MG CAP PO PRN (04:00)
[2023-11-02] MEDS ORDERED: ACETAMINOPHEN 325 MG TAB PO PRN (04:00)
[2023-11-02] MEDS: SODIUM CHLOR 0.9% PF (SALINE LOCK) 10ML VIAL/SYR IV SCH (06:08)
[2023-11-02 07:27] LABS: Alanine Aminotransferase 13 U/L (7-40); Albumin 4.4 g/dL (3.2-4.8); Alkaline Phosphatase 104 U/L (46-116); Anion Gap 7 (5-15); Aspartate Aminotransferase 14 U/L (13-40); Calcium 9.2 mg/dL (8.7-10.4); Carbon Dioxide 20 mmol/L (20-30); Chloride 111 mmol/L (98-107); Glucose 84 mg/dL (74-106); Potassium 4.1 mmol/L (3.5-5.1); Sodium 138 mmol/L (136-145)
[2023-11-02 07:28] LABS: Bilirubin, Total 0.4 mg/dL (0.2-1.0); Total Protein 7.2 g/dL (5.7-8.2)
[2023-11-02 07:32] LABS: Eosinophils # (auto) 0.1 10 ^3/uL (0-0.8); Hemoglobin 13.3 g/dL (12.2-16.2); Monocytes # (auto) 0.5 10 ^3/uL (0-1.3)
[2023-11-02 07:35] LABS: Basophils # (auto) 0 10 ^3/uL (0-0.2); Basophils % (auto) 0.6 % (0.0-2.0); Hematocrit 39.7 % (36.0-46.0); Lymphocytes # (auto) 2.2 10 ^3/uL (0.4-5.4); Mean Corpuscular Hemoglobin 26.5 pg (28.0-32.0); Mean Corpuscular Hgb Conc. 33.5 g/dL (32.0-36.0); Mean Corpuscular Volume 79.2 fL (80.0-100.0); Monocytes % (auto) 6.4 % (0.0-12.0); Neutrophils # (auto) 5.1 10 ^3/uL (1.6-8.6); Nucleated Red Blood Cells % 0.1 %; Platelet Count (auto) 215 10^3/uL (140-450); Red Blood Cells 5.01 10^6/uL (4.0-5.20); Red Cell Distribution Width 15.6 % (11.8-14.3)
[2023-11-02 07:55] VITALS: PULSE 73; RESP 14; O2SAT 99
[2023-11-02 08:38] LABS: BUN/Creatinine Ratio 7.7 (10.0-20.0); Blood Urea Nitrogen < 5 mg/dL (9-23)
[2023-11-02] MEDS: levETIRAcetam 1000 mg/100ml 100 ML IV SCH (10:10)
[2023-11-02 14:52] VITALS: BP 93/60; PULSE 86; RESP 16; TEMP 98.5; O2SAT 98
[2023-11-02 17:40] VITALS: BP 94/71; PULSE 75; RESP 17; TEMP 98.3; O2SAT 100
[2023-11-02 20:00] VITALS: PULSE 102
[2023-11-02 21:00] VITALS: BP 98/62; PULSE 99; RESP 20; TEMP 98.4; O2SAT 100
[2023-11-02] MEDS: PHENYTOIN SODIUM 100 MG CAP PO SCH (22:36)
[2023-11-02] MEDS: levETIRAcetam 500 MG TAB PO SCH (22:37)
[2023-11-02 23:45] LABS: Urine Bacteria FEW /hpf (None Seen); Urine Blood 3+ /uL (Negative); Urine Clarity Turbid (Clear); Urine Color Light-Brown (Yellow); Urine Protein, UAD TRACE (Negative); Urine Specific Gravity 1.017 (1.001-1.035); Urine Urobilinogen Normal (Negative); Urine WBC 14 /hpf (0 - 5); Urine pH 5.5 (5.0-9.0)
[2023-11-03] VITALS (8 sets, daily range): BP systolic 84–101; BP diastolic 45–62; PULSE 73–91; RESP 15–20; TEMP 97.9–98.6; O2SAT 98–100
[2023-11-03 06:04] LABS: Basophils # (auto) 0.1 10 ^3/uL (0-0.2); Monocytes # (auto) 0.7 10 ^3/uL (0-1.3)
[2023-11-03 06:08] LABS: Basophils % (auto) 0.8 % (0.0-2.0); Eosinophils # (auto) 0.2 10 ^3/uL (0-0.8); Eosinophils % (auto) 2.1 % (0.0-7.0); Hematocrit 36.4 % (36.0-46.0); Hemoglobin 12.5 g/dL (12.2-16.2); Lymphocytes # (auto) 2.8 10 ^3/uL (0.4-5.4); Lymphocytes % (auto) 36.9 % (10.0-50.0); Mean Corpuscular Hemoglobin 26.6 pg (28.0-32.0); Mean Corpuscular Hgb Conc. 34.3 g/dL (32.0-36.0); Mean Corpuscular Volume 77.7 fL (80.0-100.0); Monocytes % (auto) 9.2 % (0.0-12.0); Neutrophils # (auto) 3.8 10 ^3/uL (1.6-8.6); Nucleated Red Blood Cells % 0.3 %; Platelet Count (auto) 230 10^3/uL (140-450); Red Blood Cells 4.68 10^6/uL (4.0-5.20); Red Cell Distribution Width 15.8 % (11.8-14.3); White Blood Cell 7.5 10^3/uL (4.4-10.8)
[2023-11-03 06:19] LABS: Alanine Aminotransferase 10 U/L (7-40); Albumin 4.3 g/dL (3.2-4.8); Alkaline Phosphatase 111 U/L (46-116); Anion Gap 9 (5-15); Aspartate Aminotransferase 9 U/L (13-40); Bilirubin, Total 0.2 mg/dL (0.2-1.0); Blood Urea Nitrogen 12 mg/dL (9-23); Calcium 9.6 mg/dL (8.7-10.4); Carbon Dioxide 24 mmol/L (20-30); Chloride 109 mmol/L (98-107); Glucose 83 mg/dL (74-106); Magnesium 1.9 mg/dL (1.6-2.6); Potassium 3.8 mmol/L (3.5-5.1); Sodium 142 mmol/L (136-145); Total Protein 6.9 g/dL (5.7-8.2)
[2023-11-03] MEDS: POTASSIUM CHL 20 Meq TABLET PO ONE (09:57)
[2023-11-03] MEDS: cefTRIAXone 1GM/50ML D5W 50 ML IV SCH (09:59)
[2023-11-03] MEDS: PHENYTOIN IV DILANTIN 1,000 MG in SODIUM CHL 0.9% 250 ML IV ONE (21:45)
[2023-11-04] VITALS (9 sets, daily range): BP systolic 88–101; BP diastolic 45–72; PULSE 64–115; RESP 16–18; TEMP 97.5–98.6; O2SAT 97–100
[2023-11-04] MEDS: PHENYTOIN SODIUM 50 MG/ML 2ML VIAL IV ONE ×3 (02:20→02:28)
[2023-11-04] MEDS: LORazepam 2MG/ML-1ML VIAL IV PRN (06:25)
[2023-11-05] VITALS (8 sets, daily range): BP systolic 88–105; BP diastolic 52–71; PULSE 66–96; RESP 14–18; TEMP 97.9–98.3; O2SAT 95–100
[2023-11-05 10:59] LABS: Basophils # (auto) 0.1 10 ^3/uL (0-0.2); Basophils % (auto) 0.8 % (0.0-2.0); Eosinophils # (auto) 0.1 10 ^3/uL (0-0.8); Eosinophils % (auto) 1.2 % (0.0-7.0); Lymphocytes # (auto) 1.8 10 ^3/uL (0.4-5.4); Mean Corpuscular Hemoglobin 25.9 pg (28.0-32.0)
[2023-11-05 11:02] LABS: Hematocrit 36.9 % (36.0-46.0); Hemoglobin 12.4 g/dL (12.2-16.2); Lymphocytes % (auto) 21.6 % (10.0-50.0); Mean Corpuscular Hgb Conc. 33.6 g/dL (32.0-36.0); Mean Corpuscular Volume 76.9 fL (80.0-100.0); Monocytes # (auto) 0.6 10 ^3/uL (0-1.3); Monocytes % (auto) 6.8 % (0.0-12.0); Neutrophils # (auto) 5.9 10 ^3/uL (1.6-8.6); Neutrophils % (auto) 69.6 % (37.0-80.0); Platelet Count (auto) 231 10^3/uL (140-450); Red Cell Distribution Width 15.7 % (11.8-14.3); White Blood Cell 8.4 10^3/uL (4.4-10.8)
[2023-11-05 11:14] LABS: Alanine Aminotransferase 13 U/L (7-40); Albumin 4.6 g/dL (3.2-4.8); Alkaline Phosphatase 113 U/L (46-116); Anion Gap 8 (5-15); Aspartate Aminotransferase 10 U/L (13-40); BUN/Creatinine Ratio 10.8 (10.0-20.0); Blood Urea Nitrogen 9 mg/dL (9-23); Calcium 9.4 mg/dL (8.7-10.4); Carbon Dioxide 27 mmol/L (20-30); Chloride 106 mmol/L (98-107); Glucose 77 mg/dL (74-106); Potassium 3.7 mmol/L (3.5-5.1); Sodium 141 mmol/L (136-145)
[2023-11-05 11:15] LABS: Bilirubin, Total 0.3 mg/dL (0.2-1.0); Total Protein 7.5 g/dL (5.7-8.2)
[2023-11-05] MEDS: PHENYTOIN SODIUM 100 MG CAP PO SCH (23:55)
[2023-11-06 01:00] VITALS: BP 93/63; PULSE 73; RESP 14; TEMP 98.1; O2SAT 98
[2023-11-06 05:00] VITALS: BP 93/55; PULSE 88; RESP 14; TEMP 98; O2SAT 100
[2023-11-06 08:00] VITALS: PULSE 67; PULSE 72; RESP 18; O2SAT 99
== END 2023-11-06 12:50 | disposition home or self-care (01) | DRG 53 ==
LOC: EDBD 19:49 → ER 19:49 → TELE 11-02 03:58 → TELE-CENTR 11-02 14:47
PROVIDERS: ADMIT Nurse Practitioner Family; ATTEND Internal Medicine
DX: G40.401 Other generalized epilepsy and epileptic syndromes, not intractable, with status epilepticus (principal); N39.0 Urinary tract infection, site not specified; T42.0X5A Adverse effect of hydantoin derivatives, initial encounter; Z79.899 Other long term (current) drug therapy; Z81.8 Family history of other mental and behavioral disorders; Z82.0 Family history of epilepsy and other diseases of the nervous system; Z82.49 Family history of ischemic heart disease and other diseases of the circulatory system; Z83.3 Family history of diabetes mellitus; Y92.89 Other specified places as the place of occurrence of the external cause
CPT/HCPCS: 36415; 70450; 80048; 80053; 80185; 81001; 82542; 82607; 83735; 84443; 84702; 85025; 93005; 95819; 99291; G0378; J2250